=== PATIENT | male | born 1995 | race Caucasian/White ===

== ENCOUNTER 2018-09-06 18:10 | Emergency (ER) | payer OTHER ==
[~2018-09-06] VITALS: Ht 180.3 cm; Wt 78.5 kg
[2018-09-06 18:15] VITALS: BP 158/99
--- NOTE | 2018-09-06 18:20 | NUR ---
BIB SELF. AAO X4 C/O CP AND PALPITATIONS X2 MONTHS. STATES INTERMITENT SHARP BURNING CP AT 12/21. PT STATES ANGELA LATERAL NECK PAIN X2 WEEKS AT 02/20. PT STATES HE GOES BACK TO [facility] 10/03 FOR A STRESS TEST. PT REPORTS LOSING 20LBS IN 2 WEEKS BECAUSE HE CANNOT EAT. PERRLA BRISK 3MM. FULL CLEAR SPEECH. FACIAL SYMMETRY NOTED. EQUAL ANGELA STRENGTH TO UPPER AND LOWER EXTREMITIES. PT PLACED ON FULL CAGE CLERK. HOB UP. BED SIDE RAILS UP X1. ON LOW BED POSITION, LOCKED. ER MADE AWARE OF PT STATUS.
--- NOTE | 2018-09-06 19:13 | NUR ---
ASSUMED CARE OF PT FROM CHANTAL [place]
--- NOTE | 2018-09-06 19:28 | NUR ---
AMBULATED TO RESTROOM WITHOUT ASSIST.
[2018-09-06] MEDS ORDERED: LIDOCAINE VISCOUS 2% 20 ML UDC PO ONE (19:35)
[2018-09-06] MEDS ORDERED: PANTOPRAZOLE 40 MG TABEC PO ONE (19:35)
[2018-09-06] MEDS ORDERED: ALUMINUM HYD/MAG/SIMETHICONE 30 ML UDC PO ONE (19:35)
[2018-09-06] MEDS ORDERED: DICYCLOMINE HCL LIQUID 10 MG/5 ML UDC PO ONE (19:35)
--- NOTE | 2018-09-06 19:42 | NUR ---
PT TAKEN TO RAD VIA WHEELCHAIR
--- NOTE | 2018-09-06 19:55 | NUR ---
PT RETURNED FROM RAD VIA WHEELCHAIR
[2018-09-06 20:42] VITALS: BP 127/80
--- NOTE | 2018-09-06 20:42 | NUR ---
Patient discharged with v/s stable. Written and verbal after care instructions given and explained. Patient alert, oriented and verbalized understanding of instructions. Ambulatory with steady gait. All questions addressed prior to discharge. ID band removed. Patient advised to follow up with PMD. Rx of PROTONIX, MOTRIN given. Patient educated on indication of medication including possible reaction and side effects. Opportunity to ask questions provided and answered.
== END 2018-09-06 20:42 | disposition home or self-care (01) ==
LOC: MED 18:10
DX: S16.1XXA Strain of muscle, fascia and tendon at neck level, initial encounter (principal); K29.70 Gastritis, unspecified, without bleeding; J45.909 Unspecified asthma, uncomplicated; F17.200 Nicotine dependence, unspecified, uncomplicated; X58.XXXA Exposure to other specified factors, initial encounter; Y93.89 Activity, other specified; Y92.89 Other specified places as the place of occurrence of the external cause; Y99.8 Other external cause status
CPT/HCPCS: 72040; 93005; 99284

== ENCOUNTER 2018-09-12 15:25 | Emergency (ER) | payer OTHER ==
[~2018-09-12] VITALS: Ht 177.8 cm; Wt 76.2 kg
[2018-09-12 15:42] VITALS: BP 139/87
--- NOTE | 2018-09-12 16:26 | NUR ---
PT BIB SELF C/O CP, PALPITATIONS, AND THROAT PAIN X1 DAY. PT REPORTS 6/10 NONRADIATING BURNING CP AT 6/10, STATES THROAT FEELS TIGHT, AND DESCRIBES PALPIATIONS SKIPPING A BEAT. HEART RRR. PT DENIES N/V/D, FEVER, OR SOB. VSS. ER MD TO SEE PT.
[2018-09-12] MEDS ORDERED: KETOROLAC 60 MG/2 ML VIAL IM ONE (17:20)
--- NOTE | 2018-09-12 17:35 | NUR ---
PT REFUSED TORADOL MEDICATION ORDERED. PER PT HE IS TAKING NATTOKINASE. DR HURTADO NOTIFIED AND AWARE.
[2018-09-12 17:43] VITALS: BP 121/70
== END 2018-09-12 17:45 | disposition home or self-care (01) ==
LOC: MED 15:25
DX: R07.89 Other chest pain (principal)
CPT/HCPCS: 81002; 99283; J1885

== ENCOUNTER 2018-12-03 00:54 | Emergency (ER) | payer OTHER ==
[~2018-12-03] VITALS: Ht 180.3 cm; Wt 68.5 kg
[2018-12-03 00:57] VITALS: BP 156/83
--- NOTE | 2018-12-03 01:05 | NUR ---
PT TAKEN TO BED 11
--- NOTE | 2018-12-03 01:05 | NUR ---
ASSUMED CARE OF PT AT THIS TIME. C/O WORSENING, CHRONIC PALPITATIONS X 1 DAY. PT W/ MULTIPLE ER VISITS FOR SAME COMPLAINT. NO CP OR SOB. AAOX4 WITH EVEN AND STEADY GAIT; PATIENT STATES PAIN OF 0/10; VSS; PATIENT POSITIONED FOR COMFORT; HOB ELEVATED; BEDRAILS UP X2; BED DOWN. ER MD MADE AWARE OF PT STATUS. WILL CONTINUE TO MONITOR.
[2018-12-03] MEDS ORDERED: NACL 0.9% 1,000 ML IV ONE (01:25)
[2018-12-03 01:38] LABS: BASOPHILS % (AUTO) 0.6 % (0.0-2.0); EOSINOPHILS # (AUTO) 0.1 K/uL (0-0.4); EOSINOPHILS % (AUTO) 2.5 % (0.0-4.0); HEMATOCRIT 40.5 % (36-52); HEMOGLOBIN 14.1 g/dL (12.0-18.0); LYMPHOCYTES # (AUTO) 1.8 K/uL (2.0-11.5); LYMPHOCYTES % (AUTO) 31.3 % (20.5-51.1); MEAN CORPUSCULAR HEMOGLOBIN 30 pg (27-31); MEAN CORPUSCULAR HGB CONC 35 g/dL (33-37); MEAN CORPUSCULAR VOLUME 87.2 fL (80-94); MONOCYTES # (AUTO) 0.4 K/uL (0.8-1.0); MONOCYTES % (AUTO) 7.7 % (1.7-9.3); NEUTROPHILS # (AUTO) 3.2 K/uL (1.8-7.7); NEUTROPHILS % (AUTO) 57.9 % (42.2-75.2); PLATELET COUNT (AUTO) 228 K/uL (140-450); RED BLOOD CELL COUNT(AUTO) 4.65 MIL/uL (4.20-6.10); WHITE BLOOD COUNT (AUTO) 5.6 K/uL (4.8-10.8)
[2018-12-03 01:53] LABS: ALBUMIN 4.2 g/dL (3.4-5.0); ANION GAP 18.3 (8-16); CARBON DIOXIDE 22.6 mmol/L (21-32); CREATININE 0.8 mg/dL (0.7-1.3); TOTAL BILIRUBIN 0.8 mg/dL (0.0-1.0)
[2018-12-03 01:58] LABS: POTASSIUM 2.9 mmol/L (3.5-5.1)
[2018-12-03] MEDS ORDERED: POTASSIUM CHLORIDE 10 MEQ TABER PO ONE (02:00)
--- NOTE | 2018-12-03 02:00 | NUR ---
PT IS AWAKE, LAYING IN BED. C/O PALPITATIONS. NO PAIN. VSS. DR WEAVER AWARE. WILL CONTINUE TO MONITOR.
[2018-12-03 02:25] VITALS: BP 136/75
--- NOTE | 2018-12-03 02:25 | NUR ---
PT'S DISCHARGE PAPERWORKS PROVIDED. NO PALPITATIONS. TOLD PT TO FOLLOW UP WITH PCP AND WHEN TO RETURN TO THE ER. VSS. ALL QUESTIONS ANSWERED.
== END 2018-12-03 02:25 | disposition home or self-care (01) ==
LOC: MED 00:54
DX: E87.6 Hypokalemia (principal); E87.1 Hypo-osmolality and hyponatremia; F41.9 Anxiety disorder, unspecified; J45.909 Unspecified asthma, uncomplicated
CPT/HCPCS: 36415; 80053; 85025; 93005; 99284; J7030

== ENCOUNTER 2019-01-13 17:41 | Emergency (ER) | payer OTHER ==
[~2019-01-13] VITALS: Ht 180.3 cm; Wt 66.8 kg
[2019-01-13 17:48] VITALS: BP 120/76
--- NOTE | 2019-01-13 17:58 | NUR ---
PATIENT PRESENTS TO ED WITH C/O PALPITATIONS, SOB, INTERMITTENT MID CHEST PAIN X 1 WEEK. PT DENIES N/V, RECENT ILLNESS. PMH: SCHIZOEFFECTIVE BIPOLAR DISORDER . LUNGS CLEAR BL; HR EVEN AND REGULAR; PLAYING GAMES WHILE ASSESSMENT, PATIENT STATES PAIN OF 8/10 AT THIS TIME; VSS; PATIENT POSITIONED FOR COMFORT; HOB ELEVATED; BEDRAILS UP X2; BED DOWN. ER MD MADE AWARE OF PT STATUS.
--- NOTE | 2019-01-13 17:58 | NUR ---
PT AMBULATED TO THE BATHROOM WITH STEADY GAIT. URINE CUP GIVEN
--- NOTE | 2019-01-13 18:00 | NUR ---
PT TAKEN TO BED 8.
--- NOTE | 2019-01-13 18:30 | NUR ---
Patient being evaluated by physician at bedside.
--- NOTE | 2019-01-13 19:09 | NUR ---
endorced patient care to director public policy nurse at this time.
--- NOTE | 2019-01-13 19:09 | NUR ---
RECEIVED REPORT FROM CHANTAL MATHUR. PT IN BED RESTING, VSS AT THIS TIME. WILL CONTINUE TO MONITOR CLOSELY.
[2019-01-13 20:21] LABS: BASOPHILS % (AUTO) 0.6 % (0.0-2.0); EOSINOPHILS # (AUTO) 0.1 K/uL (0-0.4); EOSINOPHILS % (AUTO) 0.9 % (0.0-4.0); HEMATOCRIT 43.6 % (36-52); HEMOGLOBIN 14.9 g/dL (12.0-18.0); LYMPHOCYTES # (AUTO) 1.1 K/uL (2.0-11.5); LYMPHOCYTES % (AUTO) 19.7 % (20.5-51.1); MEAN CORPUSCULAR HEMOGLOBIN 31 pg (27-31); MEAN CORPUSCULAR HGB CONC 34 g/dL (33-37); MEAN CORPUSCULAR VOLUME 89.7 fL (80-94); MONOCYTES # (AUTO) 0.3 K/uL (0.8-1.0); MONOCYTES % (AUTO) 6.2 % (1.7-9.3); NEUTROPHILS # (AUTO) 4.1 K/uL (1.8-7.7); NEUTROPHILS % (AUTO) 72.6 % (42.2-75.2); PLATELET COUNT (AUTO) 214 K/uL (140-450); RED BLOOD CELL COUNT(AUTO) 4.86 MIL/uL (4.20-6.10); RED CELL DISTRIBUTION WIDTH 12.8 % (11.6-13.7); WHITE BLOOD COUNT (AUTO) 5.6 K/uL (4.8-10.8)
[2019-01-13 20:26] LABS: APPEARANCE,URINE CLEAR (CLEAR); BILIRUBIN,URINE NEGATIVE (NEGATIVE); BLOOD, URINE NEGATIVE (NEGATIVE); COLOR,URINE YELLOW (YELLOW); LEUKOCYTE ESTERASE ,URINE NEGATIVE (NEGATIVE); NITRITE, URINE NEGATIVE (NEGATIVE); PH,URINE 6.5 (5.0-9.0); UGLUCOSE NEGATIVE (NEGATIVE)
[2019-01-13 20:36] LABS: ANION GAP 14.4 (8-16); CARBON DIOXIDE 26.1 mmol/L (21-32); POTASSIUM 3.5 mmol/L (3.5-5.1)
[2019-01-13 20:39] LABS: ALBUMIN 4.2 g/dL (3.4-5.0); TOTAL BILIRUBIN 0.7 mg/dL (0.0-1.0)
[2019-01-13 20:58] VITALS: BP 122/76
--- NOTE | 2019-01-13 20:58 | NUR ---
Patient discharged with v/s stable. Written and verbal after care instructions given and explained. Patient verbalized understanding. Ambulatory with steady gait. All questions addressed prior to discharge. Advised to follow up with PMD.
== END 2019-01-13 20:58 | disposition home or self-care (01) ==
LOC: MED 17:41
DX: R00.2 Palpitations (principal); J45.909 Unspecified asthma, uncomplicated
CPT/HCPCS: 36415; 71045; 80053; 81003; 85025; 93005; 99284; Q0092

== ENCOUNTER 2019-01-19 20:50 | Emergency (ER) | payer OTHER ==
[~2019-01-19] VITALS: Ht 180.3 cm; Wt 66.8 kg
[2019-01-19 20:57] VITALS: BP 121/77
--- NOTE | 2019-01-19 21:00 | NUR ---
TRIAGE COMPLETE. EKG PERFORMED AND INTERPRETED BY ER MD. CHINCHILLA TO WAIT IN LOBBY FOR BED.
--- NOTE | 2019-01-19 22:42 | NUR ---
PT AMBULATORY TO ER BED 12 .
--- NOTE | 2019-01-19 22:53 | NUR ---
23 Y/O MALE PRESENTS TO ED, C/O PALPITATIONS X 1 WEEK. PT STATES PALPITATIONS IS WORSE TODAY. PT DENIES ANY CHEST PAIN. C/O SOB YESTERDAY BUT DENIES ANY SOB TODAY. PT EKG READ NSR. PT HAS HX OF SCHIZOPHRENIA AND COMPLIANT WITH HALDOL. PT VSS. ERMD AWARE. WILL CONTINUE TO MONITOR.
[2019-01-20] MEDS ORDERED: ALUMINUM HYD/MAG/SIMETHICONE 30 ML, DICYCLOMINE HCL LIQUID 20 MG, LIDOCAINE VISCOUS 2% ... PO ONE ×3 (00:55)
[2019-01-20 02:15] VITALS: BP 122/76
--- NOTE | 2019-01-20 02:29 | NUR ---
PT DISCHARGED WITH PAPERWORK. NO RX PROVIDED. EDUCATED PT REGARDING D/C DIAGNOSIS AND INSTRUCTIONS. PT VERBALIZED UNDERSTANDING OF TEACHING. TOLD PT TO FOLLOW UP WITH PCP OR [facility]ALITY PROJECT MANAGER AND WHEN TO RETURN TO ED. PT VSS. ALL QUESTIONS ANSWERED.
== END 2019-01-20 02:15 | disposition home or self-care (01) ==
LOC: MED 20:50
DX: R00.2 Palpitations (principal); R06.02 Shortness of breath; R10.13 Epigastric pain; J45.909 Unspecified asthma, uncomplicated; F20.9 Schizophrenia, unspecified
CPT/HCPCS: 93005; 99283

== ENCOUNTER 2019-01-22 20:27 | Emergency (ER) | payer OTHER ==
[~2019-01-22] VITALS: Ht 180.3 cm; Wt 65.3 kg
[2019-01-22 20:46] VITALS: BP 134/73
--- NOTE | 2019-01-22 21:23 | NUR ---
PT AMBULATED TO BED #3
--- NOTE | 2019-01-22 21:43 | NUR ---
23 Y/O MALE C/O PALPITATOINS AND SOB X1 WEEK. HR AND PULSE IS STRONG AND BOUDNING 81BPM. LUNGS CLEAR BILAT THROUGHOUT. O2SAT 100% @RA. NO DISTRESS NOTED. DENIES DRUGS, SMOKING, OR ALCOHOL USE. DENIES NAUSEA/VOMITING/DIARRHEA. NO PAIN AT THIS TIME. PATIENT IS A/OX4 AND FOLLOWS COMMANDS. PERRLA +3. ERMD MADE AWARE OF STATUS. PLACED ON MONITOR. SIDERAILSX1. HX: SCHIZOAFFECTIVE BIPOLAR NKDA RX: HALDOL
--- NOTE | 2019-01-22 21:47 | NUR ---
Dr. Dotson examining patient.
[2019-01-22] MEDS ORDERED: LORazepam 2 MG/ML VIAL IM ONE (21:55)
[2019-01-22 22:08] LABS: BASOPHILS % (AUTO) 0.4 % (0.0-2.0); EOSINOPHILS # (AUTO) 0.1 K/uL (0-0.4); EOSINOPHILS % (AUTO) 1.1 % (0.0-4.0); HEMATOCRIT 43.5 % (36-52); HEMOGLOBIN 14.9 g/dL (12.0-18.0); LYMPHOCYTES # (AUTO) 1.2 K/uL (2.0-11.5); MEAN CORPUSCULAR HEMOGLOBIN 31 pg (27-31); MEAN CORPUSCULAR HGB CONC 34 g/dL (33-37); MEAN CORPUSCULAR VOLUME 89.2 fL (80-94); MONOCYTES # (AUTO) 0.4 K/uL (0.8-1.0); MONOCYTES % (AUTO) 6.2 % (1.7-9.3); NEUTROPHILS % (AUTO) 71.3 % (42.2-75.2); PLATELET COUNT (AUTO) 235 K/uL (140-450); RED BLOOD CELL COUNT(AUTO) 4.88 MIL/uL (4.20-6.10); RED CELL DISTRIBUTION WIDTH 13.1 % (11.6-13.7); WHITE BLOOD COUNT (AUTO) 5.6 K/uL (4.8-10.8)
[2019-01-22 22:28] LABS: ANION GAP 12.8 (8-16); CREATININE 0.9 mg/dL (0.7-1.3); POTASSIUM 3.8 mmol/L (3.5-5.1)
--- NOTE | 2019-01-22 22:43 | NUR ---
PATIENT IS QUIETLY SITTING IN BED AND ON HIS PHONE.
[2019-01-22 23:25] VITALS: BP 120/71
--- NOTE | 2019-01-22 23:25 | NUR ---
DISCHARGE PAPERS GIVEN TO PT. NO NERVOUSNESS. NO PAIN. VSS. RX OF XANAX GIVEN. SIDE EFFECTS EXPLAINED. INSTRUCTED TO F/U WITH PCP AND WHEN TO RETURN TO ER. PT VERBALLIZED UNDERSTANDING OF DC INSTRUCTIONS. ALL QUESTIONS ANSWERED.
== END 2019-01-22 23:25 | disposition home or self-care (01) ==
LOC: MED 20:27
DX: F41.9 Anxiety disorder, unspecified (principal); J45.909 Unspecified asthma, uncomplicated; F20.9 Schizophrenia, unspecified
CPT/HCPCS: 36415; 80048; 85025; 93005; 99284; J2060

== ENCOUNTER 2019-01-30 20:16 | Emergency (ER) | payer OTHER ==
[~2019-01-30] VITALS: Ht 180.3 cm; Wt 66.2 kg
[2019-01-30 20:19] VITALS: BP 132/70
--- NOTE | 2019-01-30 20:28 | NUR ---
AA0X4. VSS. TO JEREMY HD[facility]
--- NOTE | 2019-01-30 21:35 | NUR ---
PT AMBULATED TO BED 02.
--- NOTE | 2019-01-30 21:48 | NUR ---
23 Y/O M PRESENTS TO ED WITH C/O DIZZINESS X 1900. AAOX4. PT HAS BEEN SELF MEDICATING WITH 325MG ASPRIN DAILY, OCCASSIONALLY TID. PT TOOK 325MG ASA AT 1200 AND 81MG ASA AT 1700. PT TAKING MEDICATION NOT UNDER THE SUPERVISON OF A PHYSICIAN. PER PT "I BEING SEEN BY A [employer]OD CHECK[employer] AND C[employer]IERS SUPERVISOR FOR PALPITATIONS." PT HAD A ECHOCARDIOGRAM DONE TODAY AND A STRESS DONE YESTERDAY. HR AT 63 WITH NO C/O CHEST PAIN. HR REGULAR RHYTHM AND RATE. PT DENIES N/V/D. PT ATTACHED TO MONITOR. WILL CONTINUE TO MONITOR.
--- NOTE | 2019-01-30 22:41 | NUR ---
PT C/O OF RETURNED DIZZINESS. ERMD MADE AWARE.
[2019-01-30 23:05] LABS: ANION GAP 15.5 (8-16); CARBON DIOXIDE 24.3 mmol/L (21-32); CREATININE 0.9 mg/dL (0.7-1.3); POTASSIUM 3.8 mmol/L (3.5-5.1)
[2019-01-30 23:12] LABS: ACETAMINOPHEN < 0.5 ug/ml (10-30); SALICYLATE < 2.8 mg/dL (2.8-20.0)
--- NOTE | 2019-01-30 23:25 | NUR ---
PT SEATED UPRIGHT IN BED. VSS. WILL CONTINUE TO MONITOR.
[2019-01-30 23:56] LABS: BARBITURATE, URINE NEG. ng/ml (NEG <=200); BENZODIAZEPINE, URINE NEG. ng/mL (NEG <=200); CANNABINOID, URINE NEG. ng/mL (NEG <=50); COCAINE, URINE NEG. ng/mL (NEG <=300); OPIATE, URINE NEG. ng/mL (NEG <=2000); PHENCYCLIDINE SCREEN,URINE NEG. ng/mL (NEG <=25)
[2019-01-31 00:07] VITALS: BP 122/69
== END 2019-01-31 00:07 | disposition home or self-care (01) ==
LOC: MED 20:16
DX: R42 Dizziness and giddiness (principal); R20.2 Paresthesia of skin; R07.9 Chest pain, unspecified; J45.909 Unspecified asthma, uncomplicated
CPT/HCPCS: 36415; 80048; 80305; 99283; G0480; G0482; 93005; 99284

== ENCOUNTER 2019-12-10 21:39 | Emergency (ER) | payer OTHER ==
[~2019-12-10] VITALS: Ht 177.8 cm; Wt 73.0 kg
[2019-12-10 21:43] VITALS: BP 133/80
--- NOTE | 2019-12-10 22:09 | NUR ---
LAB AT BEDSIDE
--- NOTE | 2019-12-10 22:09 | NUR ---
RAD AT BEDSIDE
--- NOTE | 2019-12-10 22:10 | NUR ---
24 YO M BIB SELF FOR C/C OF INTERMITTENT 5/10 SHARP SUBSTERNAL CHEST PAIN X1 DAY. PT STATES HE TOOK ASPIRIN YESTERDAY WITH NO RELIEF OF SYMPTOMS. S1S2 HEARD. LUNG SOUNDS CLEAR THROUGHOUT. DENIES DIAPHORESIS, SWELLING IN EXTREMETIES, N/V/D. PERIPHERAL PULSES EQUAL AND STRONG. DENIES COVID SYMPTOMS. ALLERGIES TO SULFA MED HX: MITRAL VALVE PROLAPSE, DENIES HEART SURGERY
--- NOTE | 2019-12-10 22:21 | NUR ---
IV INSERTED IN LEFT A/C , 20G , IV FLUSHED W/ 10CC NS , IV PATENT , NO REDNESS , SWELLING OR PAIN NOTED AT IV SITE.
--- NOTE | 2019-12-10 22:21 | NUR ---
LABS COLLECTED AND HANDED TO LAB.
[2019-12-10 22:29] LABS: BASOPHILS # (AUTO) 0.1 K/uL (0.00-0.22); BASOPHILS % (AUTO) 1.3 % (0.0-2.0); EOSINOPHILS # (AUTO) 0.2 K/uL (0-0.4); EOSINOPHILS % (AUTO) 4.6 % (0.0-4.0); HEMATOCRIT 47.9 % (36-52); HEMOGLOBIN 16.4 g/dL (12.0-18.0); LYMPHOCYTES # (AUTO) 1.6 K/uL (2.0-11.5); LYMPHOCYTES % (AUTO) 30.7 % (20.5-51.1); MEAN CORPUSCULAR HEMOGLOBIN 33 pg (27-31); MEAN CORPUSCULAR HGB CONC 34 g/dL (33-37); MEAN CORPUSCULAR VOLUME 96.3 fL (80-94); MONOCYTES # (AUTO) 0.5 K/uL (0.8-1.0); MONOCYTES % (AUTO) 9.6 % (1.7-9.3); NEUTROPHILS # (AUTO) 2.9 K/uL (1.8-7.7); NEUTROPHILS % (AUTO) 53.8 % (42.2-75.2); PLATELET COUNT (AUTO) 227 K/uL (140-450); RED BLOOD CELL COUNT(AUTO) 4.97 MIL/uL (4.20-6.10); WHITE BLOOD COUNT (AUTO) 5.4 K/uL (4.8-10.8)
[2019-12-10 22:57] LABS: ALBUMIN 4.5 g/dL (3.4-5.0); ANION GAP 15.4 (8-16); CARBON DIOXIDE 27.6 mmol/L (21-32); TOTAL BILIRUBIN 0.5 mg/dL (0.0-1.0)
--- NOTE | 2019-12-10 23:28 | NUR ---
Dr. Anna examining patient.
[2019-12-11 00:02] VITALS: BP 116/72
== END 2019-12-11 00:02 | disposition home or self-care (01) ==
LOC: MED 21:39
DX: R07.89 Other chest pain (principal); J45.909 Unspecified asthma, uncomplicated; Z88.2 Allergy status to sulfonamides
CPT/HCPCS: 36415; 71045; 80053; 84484; 85025; 93005; 99285

== ENCOUNTER 2020-02-18 09:50 | Emergency (ER) | payer OTHER ==
[~2020-02-18] VITALS: Ht 180.3 cm; Wt 69.4 kg
[2020-02-18 09:57] VITALS: BP 129/89
--- NOTE | 2020-02-18 10:07 | NUR ---
EKG performed and given to Dr George, Pt ambulated to lobby with steady gait.
--- NOTE | 2020-02-18 10:13 | NUR ---
PT AMBULATED TO BED 02
--- NOTE | 2020-02-18 10:20 | NUR ---
Patient transferred to bed 11 for further care. RN evaluating patient at bedside.
--- NOTE | 2020-02-18 10:20 | NUR ---
Elver mccormick in ED - 02/18/20 at 1020 by MMTHEM Patient transferred to bed 7 for further care. RN evaluating patient at bedside.
--- NOTE | 2020-02-18 10:31 | NUR ---
25 YEAR OLD MALE COMPLAINS OF PALPITATIONS ON/OFF X 1 WEEK. PT STATES THAT HE DOES NOT HAVE ANY PAIN OR SOB. PT DENIES PALPITATIONS AT THIS TIME. PT AOX4, BREATHING EVEN AND UNLABORED, SKIN WARM AND DRY. BED IN LOWEST POSITION, LOCKED, BED RAIL UPX1. PMH - MITRAL VALVE PROLAPSE ALLERGIES - SULFAS
[2020-02-18 11:03] VITALS: BP 127/87
== END 2020-02-18 11:04 | disposition home or self-care (01) ==
LOC: MED 09:50
DX: K29.70 Gastritis, unspecified, without bleeding (principal); R07.9 Chest pain, unspecified; R00.2 Palpitations; F17.210 Nicotine dependence, cigarettes, uncomplicated; J45.909 Unspecified asthma, uncomplicated; Z88.2 Allergy status to sulfonamides
CPT/HCPCS: 93005; 99283

== ENCOUNTER 2022-08-13 14:24 | Emergency (ER) | payer OTHER ==
[~2022-08-13] VITALS: Ht 175.3 cm; Wt 63.5 kg
--- NOTE | 2022-08-13 14:25 | NUR ---
BIBA ALS TO [facility]
[2022-08-13 14:29] VITALS: BP 148/100
[2022-08-13] MEDS ORDERED: NACL 0.9% 1,000 ML IV ONE (14:40)
[2022-08-13 14:58] LABS: BASOPHILS % (AUTO) 0.9 % (0.0-2.0); EOSINOPHILS # (AUTO) 0.1 K/uL (0-0.4); EOSINOPHILS % (AUTO) 1.2 % (0.0-4.0); HEMATOCRIT 37.3 % (36-52); HEMOGLOBIN 12.6 g/dL (12.0-18.0); LYMPHOCYTES # (AUTO) 1.4 K/uL (2.0-11.5); LYMPHOCYTES % (AUTO) 28.5 % (20.5-51.1); MEAN CORPUSCULAR HEMOGLOBIN 33 pg (27-31); MEAN CORPUSCULAR HGB CONC 34 g/dL (33-37); MEAN CORPUSCULAR VOLUME 98.5 fL (80-94); MONOCYTES # (AUTO) 0.2 K/uL (0.8-1.0); MONOCYTES % (AUTO) 4.6 % (1.7-9.3); NEUTROPHILS # (AUTO) 3.2 K/uL (1.8-7.7); NEUTROPHILS % (AUTO) 64.8 % (42.2-75.2); PLATELET COUNT (AUTO) 216 K/uL (140-450); RED BLOOD CELL COUNT(AUTO) 3.79 MIL/uL (4.20-6.10); RED CELL DISTRIBUTION WIDTH 14.3 % (11.6-13.7)
[2022-08-13 15:29] LABS: ANION GAP 18.4 (8-16); ASPARTATE AMINOTRANSFERASE 52 U/L (15-37); CARBON DIOXIDE 22.3 mmol/L (21-32); CHLORIDE 108 mmol/L (98-107); CREATININE 0.7 mg/dL (0.6-1.3); GFR ARICAN-AMERICAN 177 mL/min (>90); GLUCOSE 132 mg/dL (74-106); POTASSIUM 3.7 mmol/L (3.5-5.1); SODIUM SERUM 145 mmol/L (136-145); TOTAL BILIRUBIN 0.2 mg/dL (0.0-1.0); UREA NITROGEN, BLOOD 11 mg/dL (7-18)
[2022-08-13 15:32] LABS: SALICYLATE < 2.8 mg/dL (2.8-20.0)
[2022-08-13 15:34] LABS: ACETAMINOPHEN < 0.5 ug/ml (10-30)
--- NOTE | 2022-08-13 15:58 | NUR ---
TAKEN BY WHEELCHAIR TO XRAY
--- NOTE | 2022-08-13 16:01 | NUR ---
BACK FROM XRAY
--- NOTE | 2022-08-13 17:00 | NUR ---
pt given apple juice and jello, pt tolerating po at this time
--- NOTE | 2022-08-13 17:10 | NUR ---
IV removed, catheter intact and site benign. Applied folded 4x4 gauze and tape to stop bleeding.
[2022-08-13] MEDS ORDERED: ONDA-188 SL (17:19)
[2022-08-13 17:33] VITALS: BP 139/87
--- NOTE | 2022-08-13 17:33 | NUR ---
Patient discharged with v/s stable. Written and verbal after care instructions given and explained. Patient alert, oriented and verbalized understanding of instructions. Ambulatory with grandmother to car. All questions addressed prior to discharge. ID band removed. Patient advised to follow up with PMD. Rx of zofran (sent) given. Patient educated on indication of medication including possible reaction and side effects. Opportunity to ask questions provided and answered.
== END 2022-08-13 17:33 | disposition home or self-care (01) ==
LOC: EDUNIT# 14:24 → MED 14:24
DX: R41.82 Altered mental status, unspecified (principal); F10.129 Alcohol abuse with intoxication, unspecified; J45.909 Unspecified asthma, uncomplicated; Z88.2 Allergy status to sulfonamides; Z79.899 Other long term (current) drug therapy; Y90.9 Presence of alcohol in blood, level not specified
CPT/HCPCS: 71045; 80053; 82550; 84484; 85025; 93005; 96360; 99285; G0480; G0482; J7030; Q0092